=== PATIENT | female | born 1935 | race Caucasian/White ===

== ENCOUNTER 2019-06-10 18:22 | Emergency (ER) | payer MEDICARE ==
[~2019-06-10] VITALS: Ht 165.1 cm; Wt 78.0 kg
[2019-06-10] MEDS ORDERED: PANTOPRAZOLE IV 40 MG VIAL. IVP ONE (18:45)
[2019-06-10] MEDS ORDERED: LIDO:MAALOX 1:1 20 ML SINGLE DOSE. PO ONE (18:45)
[2019-06-10] MEDS ORDERED: FAMOTIDINE 20 MG/2 ML VIAL IVP ONE (18:45)
--- NOTE | 2019-06-10 18:47 | PHYS DOC ---
Adult General Chief Complaint Chief Complaint: ABDOMINAL PAIN HPI HPI 83-year-old female presents with epigastric abdominal pain. The patient was eating potato soup for dinner at her care facility. She began have a tightening feeling in her throat. She felt like she might be choking. She was short of mayo th for a short amount of time. After the acute symptoms started to resolve, she developed an epigastric abdominal pain similar to her previous exacerbations of GERD. She is on Tag[place]et daily for this. The care facility was concerned it could be related to her heart so they called EMS. The patient denies cardiac disease. She has not had a heart attack. She denies any stents or bypass. Her pain is still moderate in intensity but her shortness of breath is improved. The pain is still in the epigastric area. She has not been given any medications for this. She denies fever or chills. Review of Systems Review of Systems Constitutional: Denies fever or chills [] Eyes: Denies change in visual acuity, redness, or eye pain [] HENT: Denies nasal congestion or sore throat [] Respiratory: Denies cough or shortness of breath [] Cardiovascular: No additional information not addressed in HPI [] GI: Epigastric abdominal pain, nausea. Denies vomiting, bloody stools or diarrhea [] : Denies dysuria or hematuria [] Musculoskeletal: Denies back pain or joint pain [] Integument: Denies rash or skin lesions [] Neurologic: Denies headache, focal weakness or sensory changes [] Endocrine: Denies polyuria or polydipsia [] All other systems were reviewed and found to be within normal limits, except as documented in this note. Current Medications Current Medications Current Medications Medications (Trade) Dose Ordered Sig/Shi Start Time Stop Time Status Last Admin Dose Admin Famotidine (Pepcid Vial) 20 mg 1X ONCE 06/10/19 18:45 06/10/19 18:46 Multi-Ingredient Mouthwash/Gargle (Gi Cocktail) 20 ml 1X ONCE 06/10/19 18:45 06/10/19 18:46 Pantoprazole Sodium (Protonix Vial) 40 mg 1X ONCE 06/10/19 18:45 06/10/19 18:46 Allergies Allergies Allergies Coded Allergies Type Severity Reaction Last Updated Verified No Known Drug Allergies 06/10/19 No Physical Exam Physical Exam Constitutional: Well developed, well nourished, mild acute distress, non-toxic appearance. [] HENT: Normocephalic, atraumatic, bilateral external ears normal, oropharynx moist, no oral exudates, nose normal. [] Eyes: PERRLA, EOMI, conjunctiva normal, no discharge. [] Neck: Normal range of motion, no tenderness, supple, no stridor. [] Cardiovascular:Heart rate regular rhythm, no murmur [] Lungs & Thorax: Bilateral breath sounds clear to auscultation [] Abdomen: Bowel sounds normal, soft, no tenderness, no masses, no pulsatile masses. [] Skin: Warm, dry, no erythema, no rash. [] Back: No tenderness, no CVA tenderness. [] Extremities: No tenderness, no cyanosis, no clubbing, ROM intact, no edema. [] Neurologic: Alert and oriented X 3, normal motor function, normal sensory function, no focal deficits noted. [] Psychologic: Affect normal, judgement normal, mood normal. [] EKG EKG Sinus rhythm, normal axis, no ST elevations or depressions.[] Radiology/Procedures Radiology/Procedures [] Course & Med Decision Making Course & Med Decision Making Pertinent Labs and Imaging studies reviewed. (See chart for details) The patient's labs are remarkable for an anemia. I do not have comparison. She does not meet transfusion criteria. She also has some changes in her liver enzyme levels. This may be chronic. We gave her Pepcid, Protonix, GI cocktail for her as reflux. The patient is feeling much better at this time. Her troponin is negative. Chest x-ray shows some hilar prominence, but this does not appear to be acute findings. I believe this was an exacerbation of her GERD. She is stable to return to her care facility at this time. [] Dragon Disclaimer Dragon Disclaimer This electronic medical record was generated, in whole or in part, using a voice recognition dictation system. Departure Departure: Impression: Primary Impression: Epigastric abdominal pain Additional Impression: GERD (gastroesophageal reflux disease) Disposition: 01 HOME, SELF-CARE Condition: STABLE Referrals: MIKHAIL JACKSON MD (PCP) Patient Instructions: Gastroesophageal Reflux Disease, Adult, [id number] Problem Qualifiers Additional Impression: GERD (gastroesophageal reflux disease) Esophagitis presence: esophagitis presence not specified Qualified Codes: K21.9 - Gastro-esophageal reflux disease without esophagitis LUIS ANTONIO DICK DO Jun 10, 2019 18:47
[2019-06-10 18:49] LABS: BASO % 0 % (0-3); EOS # 0.1 x10^3/uL (0.0-0.7); EOS % 1 % (0-3); HEMATOCRIT 29.5 % (36.0-47.0); HEMOGLOBIN 8.9 g/dL (12.0-15.5); LYMPH # 1.1 x10^3/uL (1.0-4.8); LYMPH % 11 % (24-48); MEAN CORPUSCULAR HEMOGLOBIN 25 pg (25-35); MEAN CORPUSCULAR HGB CONC 30 g/dL (31-37); MEAN CORPUSCULAR VOLUME 82 fL (79-100); MONO # 0.6 x10^3/uL (0.0-1.1); MONO % 6 % (0-9); NEUT # 8.1 x10^3uL (1.8-7.7); NEUT % 82 % (31-73); PLATELET COUNT 397 x10^3/uL (140-400); RED BLOOD COUNT 3.59 x10^6/uL (3.50-5.40); RED CELL DISTRIBUTION WIDTH 17.5 % (11.5-14.5); WHITE BLOOD COUNT 9.9 x10^3/uL (4.0-11.0)
[2019-06-10 19:09] LABS: ALBUMIN 2.7 g/dL (3.4-5.0); ALBUMIN/GLOBULIN RATIO 0.7 (1.0-1.7); CALCIUM 8.1 mg/dL (8.5-10.1); CREATININE 0.7 mg/dL (0.6-1.0); GFR 80.3; POTASSIUM 4.4 mmol/L (3.5-5.1); TOTAL BILIRUBIN 0.3 mg/dL (0.2-1.0); TOTAL PROTEIN 6.6 g/dL (6.4-8.2)
[2019-06-10 19:21] VITALS: BP 127/69
--- NOTE | 2019-06-11 07:35 | RAD ---
PORTABLE CHEST 1V INDICATION: Upper abdominal pain. COMPARISON STUDY: None. FINDINGS: Lungs: Low lung volume. Bilateral perihilar opacities. Indistinct pulmonary vasculature. Pleura: No pleural effusion or pneumothorax. Heart and Mediastinum: Cardiomegaly. Tortuous thoracic aorta. IMPRESSION: Low lung volume with bilateral perihilar opacities, likely interstitial edema and subsegmental atelectasis. Electronically signed by: Adithya Duenas MD (06/11/2019 7:33 AM) [id number]
--- NOTE | 2019-06-13 08:12 | EKG ---
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
== END 2019-06-10 19:52 | disposition home or self-care (01) ==
LOC: ER 18:22
DX: K21.9 Gastro-esophageal reflux disease without esophagitis (principal)
CPT/HCPCS: 36415; 71045; 80053; 83880; 84484; 85025; 93005; 96374; 96375; 99285; C9113; J3490